=== PATIENT | male | born 1980 | race African-American/Black ===

== ENCOUNTER 2023-03-05 06:09 | Emergency (ER) | payer SELFPAY ==
[2023-03-05] MEDS ORDERED: methylPREDNISolone Sod Succ/PF 125 MG/2 ML VIAL ONE (06:14)
[2023-03-05] MEDS ORDERED: Magnesium 2 GM/50 ML BAG (IN WATER) ONE (06:17)
[2023-03-05] MEDS ORDERED: Ipratropium/Albuterol 3 ML NEB ONE ×2 (06:24→06:25)
[2023-03-05 06:38] LABS: #Basophils 0.1 thou/uL (0.0-0.2); #Eosinphils 0.1 thou/uL (0.0-0.7); #Lymphocytes 2.2 thou/uL (1.20-3.40); #Monocytes 0.4 thou/uL (0.11-0.59); #Neutrophils 2.5 thou/uL (1.40-6.50); %Basophils 1.7 % (0.0-1.0); %Eosinophils 2.5 % (0.0-10.0); %Lymphocytes 41.4 % (21.0-51.0); %Monocytes 7.7 % (0.0-10.0); %Neutrophils 46.7 % (42.0-75.0); Hemoglobin 14.1 g/dL (14.0-18.0); Mean Corpuscular Hemoglobin 30.2 pg (27.0-31.0); Mean Corpuscular Volume 88.9 fl (78.0-98.0); Mean Platelet Volume 11.4 fL (7.4-10.4); Platelet Count 161 10x3/uL (130-400); RBC Distribution Width 13.1 % (11.5-14.5); Red Blood Cell (RBC) Count 4.65 mill/uL (4.70-6.10); White Blood Cell (WBC) Count 5.3 10x3/uL (4.8-10.8)
[2023-03-05 06:54] LABS: ALT (SGPT) 19 U/L (8-55); AST (SGOT) 42 U/L (5-34); Albumin 3.6 g/dL (3.5-5.0); Alkaline Phosphatase 54 U/L (40-110); Anion Gap 12 mmol/L (10-20); BUN (Urea Nitrogen) 16 mg/dL (8.9-20.6); Bilirubin, Total 0.3 mg/dL (0.2-1.2); Calc. Creatinine Clearance 0 mL/min (70-130); Calcium 8.5 mg/dL (7.8-10.44); Carbon Dioxide 24 mmol/L (22-29); Chloride 108 mmol/L (98-107); Estimated GFR 100; Globulin 2.8 g/dL (2.4-3.5); Glucose 155 mg/dL (70-105); Magnesium 1.8 mg/dL (1.6-2.6); Protein, Total 6.4 g/dL (6.0-8.3); Sodium 140 mmol/L (136-145)
[2023-03-05 07:05] LABS: Base Excess-Venous 0.2 mmol/L (-2.0 to 3.0); Bicarbonate (HCO3v) 26.3 mmol/L (22.0-28.0); CO2 Tension (PvCO2) 46.6 mmHg (42.0-51.0); Calcium, Ionized 1.16 mmol/L (1.15-1.33); Chloride 107 mmol/L (98-107); Hemoglobin - Calc 14.7 g/dL (14.0-18.0); Sodium 143 mmol/L (138-145); T. Carbon Dioxide 27.7 mmol/L (22.0-28.0); vO2 Saturation-calc 99.5 % (60.0-85.0)
== END 2023-03-05 07:20 | disposition short-term general hospital (02) ==
LOC: MADERS 06:09
DX: J45.901 Unspecified asthma with (acute) exacerbation (principal); I10 Essential (primary) hypertension
CPT/HCPCS: 71045; 80053; 82330; 82803; 83735; 85025; 93005; 96365; 96375; J2930; J3475; J7620

== ENCOUNTER 2023-03-12 06:44 | Emergency (ER) | payer SELFPAY ==
[2023-03-12] MEDS ORDERED: Ipratropium/Albuterol 3 ML NEB ONE (06:47)
[2023-03-12] MEDS ORDERED: Magnesium 2 GM/50 ML BAG (IN WATER) ONE (07:01)
[2023-03-12] MEDS ORDERED: methylPREDNISolone Sod Succ/PF 125 MG/2 ML VIAL ONE (07:01)
[2023-03-12] MEDS ORDERED: Lactated Ringer's 1,000 ML ONE (07:22)
[2023-03-12] MEDS ORDERED: Albuterol 2.5 MG/0.5 ML NEB ONE (07:22)
[2023-03-12] MEDS ORDERED: Lorazepam 2 MG/ML VIAL ONE (07:22)
[2023-03-12 07:37] LABS: #Basophils 0.1 thou/uL (0.0-0.2); #Eosinphils 0.3 thou/uL (0.0-0.7); #Lymphocytes 3.9 thou/uL (1.20-3.40); #Monocytes 0.5 thou/uL (0.11-0.59); #Neutrophils 5.2 thou/uL (1.40-6.50); %Basophils 1.2 % (0.0-1.0); %Eosinophils 3.1 % (0.0-10.0); %Lymphocytes 38.6 % (21.0-51.0); %Monocytes 5.4 % (0.0-10.0); %Neutrophils 51.6 % (42.0-75.0); Hematocrit 41.1 % (42.0-52.0); Hemoglobin 13.6 g/dL (14.0-18.0); Mean Corpuscular HGB CONC 33.1 g/dL (32.0-36.0); Mean Corpuscular Hemoglobin 29.8 pg (27.0-31.0); Mean Corpuscular Volume 89.9 fl (78.0-98.0); Mean Platelet Volume 10.4 fL (7.4-10.4); Platelet Count 197 10x3/uL (130-400); RBC Distribution Width 13.7 % (11.5-14.5); Red Blood Cell (RBC) Count 4.57 mill/uL (4.70-6.10)
[2023-03-12 07:52] LABS: Base Excess-Venous 5.1 mmol/L (-2.0 to 3.0); Bicarbonate (HCO3v) 28.6 mmol/L (22.0-28.0); CO2 Tension (PvCO2) 37.3 mmHg (42.0-51.0); vO2 Saturation-calc 99.6 % (60.0-85.0)
[2023-03-12 07:53] LABS: ALT (SGPT) 17 U/L (8-55); AST (SGOT) 19 U/L (5-34); Albumin 3.5 g/dL (3.5-5.0); Alkaline Phosphatase 48 U/L (40-110); Anion Gap 15 mmol/L (10-20); BUN (Urea Nitrogen) 19 mg/dL (8.9-20.6); Bilirubin, Total 0.3 mg/dL (0.2-1.2); Calc. Creatinine Clearance 0 mL/min (70-130); Calcium 8.2 mg/dL (7.8-10.44); Calcium, Ionized 1.05 mmol/L (1.15-1.33); Carbon Dioxide 24 mmol/L (22-29); Chloride 105 mmol/L (98-107); Estimated GFR 93; Globulin 2.5 g/dL (2.4-3.5); Glucose 92 mg/dL (70-105); Hemoglobin - Calc 14.4 g/dL (14.0-18.0); Sodium 140 mmol/L (136-145); Sodium 140 mmol/L (138-145); T. Carbon Dioxide 29.7 mmol/L (22.0-28.0)
[2023-03-12 07:59] LABS: Troponin I 0.016 ng/mL (< 0.028)
[2023-03-12] MEDS ORDERED: Ketorolac Tromethamine 30 MG/ML VIAL ONE (09:18)
== END 2023-03-12 09:25 | disposition home or self-care (01) ==
LOC: MADERS 06:44
DX: J45.909 Unspecified asthma, uncomplicated (principal); I10 Essential (primary) hypertension; Z79.899 Other long term (current) drug therapy
CPT/HCPCS: 36415; 71045; 80053; 82330; 82803; 84484; 85025; 93005; 94760; 96365; 96375; J1885; J2060; J2930; J3475; J7120; J7611; J7620